=== PATIENT | female | born 1955 | race Caucasian/White ===

== ENCOUNTER 2024-06-08 11:00 | Outpatient (RCR) | payer MEDICARE, MEDICAID, SELFPAY ==
--- NOTE | 2024-06-21 23:43 | CTCFLWUP_ITS ---
Patient: KELLY CATALAN : 1955 Page 2 of 3 FOLLOW UP NOTE DATE OF SERVICE: 06/08/2024 NAME: KELLY CATALAN ACCOUNT: [id number] : 1955 AGE: 68 HISTORY OF PRESENT ILLNESS: Patient follows with oncology for leukocytosis history. Today patient is complaining of bilateral ne ck swelling. Patient says that her neck swelling has increased in size. She also noticed decrease i n her appetite and night sweats. She has lost some weight. OTHER MEDICAL HISTORY/CONDITIONS: ANXIETY HEARTBURN CHEST PAIN CHCKENPOX GALLSTONES HIGH BLOOD PRESSURE MEASLES MUMPS HX OF ULCERS GALLBLADDER 3 C SECTIONS CARDIAC SENT FAMILY HISTORY: Father:?LUNG Mother:?THYROID?UTRINE Sibling: UTRINE?? 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 aspirin - 81 mg 1 tab Daily 2. Calcium 500 + D - 500 mg(1,250mg) -400 unit 1 tab Daily 3. clopidogrel - 75 mg 1 tab Daily 4. hydrOXYzine HCl - 50 mg 1 tab Daily 5. Lasix - 40 mg 1 tab Daily 6. Lipitor - 20 mg 1 tab Daily 7. metoprolol succinate - 25 mg 1 tab Daily 8. [place] - 10-325 mg 1 tab As directed 9. omeprazole - 40 mg 1 Capsule As needed 10. potassium chloride - 10 mEq 1 tab Daily 11. Protonix - 40 mg 1 tab Daily 12. valsartan - 80 mg 1 tab Daily 13. Vitamin D2 - 1,250 mcg (50,000 unit) 1 Capsule Weekly 14. Xanax - 0.5 mg 1 tab Twice a Day Medications Last Reconciled by Gretel Zeng MA on 06/08/2024 ALLERGIES: codeine sulfate REVIEW OF SYSTEMS: A complete 14-point review of systems was performed and is negative except as noted in interval histo ry. PHYSICAL EXAMINATION: VITAL SIGNS: Temperature?98.2, B/P?136/84, Oxygen?Saturation?95% Weight?188?lbs PAIN: 0 - No pain ECOG Performance Status: 0 - Asymptomatic and fully active GENERAL APPEARANCE: Appears well, in no apparent distress, appropriately interactive. HEENT: Bilateral neck swellings noted. Patient Havel rubbery swellings and fullness of the supraclav icular area normocephalic, no temporal wasting, normal conjunctiva, no scleral icterus, normal hearin g, lips without lesions, neck normal range of motion. CARDIOVASCULAR: Not assessed. PULMONARY: Normal respiratory effort, no respiratory distress or use of accessory muscles, speaking i n full sentences, no tachypnea. EXTREMITIES: No pedal edema or cyanosis. SKIN: Normal skin appearance. NEUROLOGIC: Alert and oriented x4. PSHYCHIATRIC: Appropriate affect, mood normal, behavior normal, intact thought and speech. LABORATORY DATA: I have personally reviewed and interpreted each of the patient?s relevant lab tests, abnormal finding s are below: Date ASSESSMENT/PLAN: 1. Bilateral neck swelling likely from lymphadenopathy concerning for lymphoma Patient physical examination is concerning with bilateral lymphadenopathy I reviewed CT scan which was negative and did not involve the symptomatic area which was negative Will get PET CT scan to evaluate lymphadenopathy 2. Leukocytosis likely from smoking 3. Lung nodule -no pulmonary nodules noted 4. Thyroid megaly and thyroid nodules--refer to endocrinology and ordered TSH T4 TSH T4 refer to home aide CBC CMP PET CT scan RETURN TO CLINIC: 3 weeks BILLING AND COMPLIANCE: I reviewed external records from providers outside my specialty as summarized above. I spent a total of 50 minutes on this patient?s care on the day of their visit excluding time spent related to any bi lled procedures. This time includes time spent with the patient as well as time spent documenting in the medical record, reviewing patients records and tests, obtaining history, placing orders, communi cating with other healthcare professionals, counseling the patient, family or caregiver, and/or care coordination for the diagnoses above. Electronically Signed by: Brannon Sneed MD T: 11:40 PM CC: Ravindra?Dickson?Jose,? PCP: Brannon Sneed Referring: Brannon Sneed This document was completed utilizing speech recognition software. Grammatical errors, random word in sertions, pronoun errors, and incomplete sentences are an occasional consequence of this system due t o software limitations, ambient noise, and hardware issues. Any formal questions or concerns about th e content, text or information contained within the body of this dictation should be directly address ed to the provider for clarification.
== END 2024-06-23 23:59 | disposition home or self-care (01) ==
LOC: SCTC 11:00
PROVIDERS: PCP Nurse Practitioner Family; Referring Provider Internal Medicine Hematology & Oncology; Visit Provider Internal Medicine Hematology & Oncology
DX: R59.0 Localized enlarged lymph nodes (principal); E04.2 Nontoxic multinodular goiter; D72.829 Elevated white blood cell count, unspecified
CPT/HCPCS: 99212; G0463

== ENCOUNTER → 2024-07-09 | Outpatient (CLI) | payer MEDICARE, MEDICAID, SELFPAY ==
--- NOTE | 2024-07-09 08:07 | XR_ITS ---
EXAMINATION: PET/CT FUSION SKULL TO THIGH EXAM DATE AND TIME: July 09, 2024 0902 hours INDICATIONS: Diagnosis lymphoma, staging prior to treatment CTDI:vol (mGy) 8.51 DLP: (mGycm) 671 PROCEDURE: 15.48 mCi FDG was administered intravenously To allow for distribution and uptake of radiotracer, the patient was allowed to rest quietly in a shielded room. Imaging was performed on an integrated 16-slice PET/CT scanner, with scanning from the skull base to the mid thigh. Serum blood glucose at the time of the injection was measured 115 mg/dL. CT scanning was performed without oral or intravenous contrast material. FINDINGS: Head and Neck: There is no fuentes hypermetabolism in the neck. Enlarged left thyroid lobe The visualized portions of the brain are normal in appearance on CT. Chest: There is no fuentes hypermetabolism in the chest. There are no pulmonary nodules. Abdomen and Pelvis: Moderate hepatomegaly There is no fuentes hypermetabolism in retroperitoneal or pelvic chains. The spleen is normal in size and FDG avidity. Musculoskeletal: Marrow uptake is within normal range. IMPRESSION: No hypermetabolic lymphadenopathy
== END | disposition home or self-care (01) ==
PROVIDERS: PCP Nurse Practitioner Family; Referring Provider Internal Medicine Hematology & Oncology; Visit Provider Internal Medicine Hematology & Oncology
DX: D72.828 Other elevated white blood cell count (principal); C76.0 Malignant neoplasm of head, face and neck
CPT/HCPCS: 78815; A9552

== ENCOUNTER 2024-07-15 07:54 | Outpatient (RCR) | payer MEDICARE, MEDICAID, SELFPAY | END 2024-07-24 23:59 | disposition home or self-care (01) | LOC: SCTC 07:54 | PROVIDERS: PCP Nurse Practitioner Family; Referring Provider Nurse Practitioner Family; Visit Provider Nurse Practitioner Family | DX: R22.1 Localized swelling, mass and lump, neck (principal); D72.829 Elevated white blood cell count, unspecified; E04.1 Nontoxic single thyroid nodule | CPT/HCPCS: 99212; G0463 ==

== ENCOUNTER 2025-02-15 11:21 | Emergency (ER) | payer MEDICARE, MEDICAID, SELFPAY ==
--- NOTE | 2025-02-15 11:25 | EKG_ITS ---
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
[2025-02-15 11:40] VITALS: BP 150/93; PULSE 83; RESP 20; TEMP 36.9; O2SAT 95
[2025-02-15 11:41] VITALS: BMI 35.5
--- NOTE | 2025-02-15 11:43 | XR_ITS ---
Examination: PA chest single view TECHNIQUE: Upright PA chest single view Date and time: February 15, 2025, 1152 hours INDICATIONS: Chest pain and coughing beginning 2 days ago. FINDINGS: Normal heart size. Lungs are clear. Reverse right shoulder arthroplasty. IMPRESSION: No pneumonia or pulmonary edema.
--- NOTE | 2025-02-15 11:47 | PD.EDCHEST ---
ED Chest Pain RME/HPI General Chief Complaint: Chest Pain Stated Complaint: CHEST PAIN RADIATING DOWN L) ARM SINCE YESTERDAY Time Seen by Provider: 02/15/25 11:42 Source: patient Arrival date/time: 02/15/25 11:21 Mode of arrival: ambulatory Limitations: no limitations RME / HPI RME / HPI narrative: 69-year-old female with a history of hypertension, anxiety, and acid reflux. She has mid chest pain radiating to the left shoulder for 4 days. History of CAD and stenting. Has chronic back pain and anxiety. She denies any lower leg swelling or dyspnea. Has no fevers or chills. No abdominal pain, nausea, vomiting. No syncope. Related Data Home Medications ?Medication ?Instructions ?Recorded ?Confirmed alprazolam 0.5 mg tablet (Xanax) 0.5 mg PO QPM PRN Anxiety 10/23/18 11/07/22 Held on 11/07/22. Instructions: Resume on 11/08/22. may resume tomorrow hydrocodone 10 mg-acetaminophen 1 tab PO TID PRN Pain 10/23/18 11/07/22 325 mg tablet ([place]) atorvastatin 20 mg tablet 20 mg PO DAILY 07/02/22 10/02/22 ergocalciferol (vitamin D2) 1,250 1,250 mcg PO QWEEK 07/02/22 10/02/22 mcg (50,000 unit) capsule (Vitamin D2) furosemide 40 mg tablet 40 mg PO DAILY 07/02/22 11/07/22 hydroxyzine HCl 25 mg tablet 50 mg PO DAILY 07/02/22 11/07/22 potassium chloride 10 mEq 10 meq PO QDAY 07/02/22 11/07/22 tablet,extended release aspirin 81 mg tablet,delayed 81 mg PO QDAY 11/07/22 11/07/22 release aspirin 81 mg tablet,delayed mg 11/07/22 release calcium 500 mg (as 1 tab PO DAILY 11/07/22 11/07/22 carbonate)-vitamin D3 5 mcg (200 unit) tablet (Oyster Shell Calcium-Vitamin D3) pantoprazole 40 mg tablet,delayed 40 mg PO BID 11/07/22 11/07/22 release valsartan 80 mg tablet 80 mg PO QDAY 11/07/22 11/07/22 Previous Rx's ?Medication ?Instructions ?Recorded albuterol sulfate 90 mcg/actuation 1 puff inhalation Q6H PRN 06/13/23 aerosol inhaler (Ventolin HFA) shortness of breath or wheezing #6.7 grams Allergies Allergy/AdvReac Type Severity Reaction Status Date / Time codeine Allergy Severe Swelling Verified 02/15/25 11:24 of the Eye Review of Systems Review of Systems Systems Reviewed: All systems reviewed, normal except as documented ED Exam General Limitations: Present no limitations General appearance: Present alert and in no apparent distress Head Head exam: Present atraumatic Eye Eye exam: Present normal appearance, PERRL and EOMI ENT ENT exam: Present normal exam, normal oropharynx and mucous membranes moist Neck Neck exam: Present normal inspection, full ROM and trachea midline Chest Chest inspection: Present normal inspection and symmetric chest wall rise Respiratory Respiratory exam: Present normal lung sounds bilaterally Cardiovascular Cardiovascular exam: Present regular rate, normal rhythm and normal heart sounds Abdominal Exam Abdominal exam: Present soft and normal bowel sounds Extremities Exam Extremities exam: Present normal inspection and full ROM Back Exam Back exam: Present normal inspection and full ROM Neurological Exam Neurological exam: Present alert and oriented X3 Psychiatric Psychiatric exam: Present agitated and anxious Skin Skin exam: Present warm, dry, intact and normal color Course Quality Measures none Orders Category Date Time Status EKG (ED ONLY) *Do not use* NOW Care 02/15/25 11:25 Completed EKG (ED Only) Stat Exams 02/15/25 11:25 Draft XR chest 1V Stat Exams 02/15/25 11:43 Completed BNP [B-Type Natriuretic Peptide] Stat Lab 02/15/25 12:10 Completed CBC Stat Lab 02/15/25 12:10 Completed CMP [Comprehensive Metabolic Panel] Stat Lab 02/15/25 12:10 Completed Lipase Stat Lab 02/15/25 12:10 Completed Mag [Magnesium] Stat Lab 02/15/25 12:10 Completed Troponin I Stat Lab 02/15/25 12:10 Completed Aspirin Chew Med 02/15/25 11:44 Discontinued 162 mg PO X1 ONE HYDROcodone*/APAP 5/325 [[place] 5/325] Med 02/15/25 11:45 Discontinued 1 tab PO X1 ONE Ondansetron Odt [Zofran Odt] Med 02/15/25 11:45 Discontinued 4 mg PO X1 ONE Vital Signs Vital signs: Vital Signs Temperature 98.4 F 02/15/25 11:40 Pulse Rate 83 02/15/25 11:40 Respiratory Rate 20 02/15/25 11:40 Blood Pressure 150/93 H 02/15/25 11:40 Pulse Oximetry (%) 95 02/15/25 11:40 Oxygen Delivery Method Room Air 02/15/25 11:40 Chest Pain MDM Narrative MDM Narrative:: 69-year-old female with a history of hypertension, anxiety, and acid reflux. She has mid chest pain radiating to the left shoulder for 4 days. History of CAD and stenting. Has chronic back pain and anxiety. She denies any lower leg swelling or dyspnea. Has no fevers or chills. No abdominal pain, nausea, vomiting. No syncope. On exam, patient is nontoxic-appearing and in no visible signs distress. Vital signs are stable. Her workup included CBC, CMP, troponin, EKG, chest x-ray. Workup is essentially unremarkable. Patient does report symptomatic. While here in the ER. She states she feels like this is more acid reflux. We discussed dietary modification including no eating or drinking 2 to 3 hours prior to sleep. 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 Return precautions were discussed. She agrees return as needed for any worsening or emergent changes. Patient data External records reviewed:: None Clinical information provided by:: patient Social determinants that could affect healthcare access:: none Patient has the following chronic illnesses:: Hypertension, anxiety, acid reflux, CAD How is presenting disease/condition affected by chronic disease/condition?: exacerbated by Evaluation data The following diagnostics were reviewed and interpreted by me:: lab results (CBC, CMP, troponin, mag are essentially unremarkable for any acute process), radiology exam(s) (Clear expanded lungs without mass or infiltrate) and EKG tracing(s) (Normal sinus rhythm no ST changes or dynamic T waves.) Lab and/or radiology exams considered but not ordered:: n/a Interpretation Summary: n/a Medications / Prescriptions Medications or Prescriptions considered but not ordered:: n/a Medication administrations:: Medication Administration History Discontinued Medications Hydrocodone Bitart/Acetaminophen (Hydrocodone/Apap 5/325 Tablet) 1 tab PO X1 ONE Stop: 02/15/25 11:46 Last Admin: 02/15/25 12:16 Dose: 1 tab Documented By: TIMO Aspirin (Aspirin 81 Mg Chew) 162 mg PO X1 ONE Stop: 02/15/25 11:45 Last Admin: 02/15/25 12:15 Dose: 162 mg Documented By: TIMO Ondansetron HCl (Ondansetron Odt 4 Mg Tabrap) 4 mg PO X1 ONE; Protocol Stop: 02/15/25 11:46 Last Admin: 02/15/25 12:15 Dose: 4 mg Documented By: TIMO See above Consultations Consultation(s) initiated? (list below): No Diagnosis Chest Pain Differential Diagnosis: costochondritis, chest pain and biliary colic Most likely diagnosis given after review of the tests above:: non-cardiac chest pain Admission Indicated Admission indicated?: not indicated Admission Request Was there a request for admission?: No Disposition Plan Disposition Plan: Discharge Discharge Attestation Discharge Attestation: The patient and all family members were given an opportunity to ask questions and understood the discharge instructions. Discharge instructions specifically effects, indications for sooner follow up or return to the emergency department, and the expected course of current diagnosis. Patient condition: Stable Discharge Plan Plan Patient Disposition: HOME (Self Care) Patient condition on transfer: Stable Prescriptions/Referrals Prescriptions/Med Rec: No Action hydrocodone-acetaminophen [[place]] 10-325 mg Tablet 1 tab PO TID PRN (Reason: Pain) alprazolam [Xanax] 0.5 mg Tablet 0.5 mg PO QPM PRN (Reason: Anxiety) furosemide 40 mg tablet 40 mg PO DAILY Patient Comments: TAKE ONE TABLET BY MOUTH EVERY MORNING A DIURETIC atorvastatin 20 mg tablet 20 mg PO DAILY Patient Comments: TAKE ONE TABLET BY MOUTH AT BEDTIME potassium chloride 10 mEq tablet extended release 10 meq PO QDAY Patient Comments: TAKE ONE TABLET BY MOUTH EVERY DAY hydroxyzine HCl 25 mg tablet 50 mg PO DAILY Patient Comments: TAKE ONE TABLET BY MOUTH AT BEDTIME ergocalciferol (vitamin D2) [Vitamin D2] 1,250 mcg (50,000 unit) capsule 1,250 mcg PO QWEEK Patient Comments: TAKE ONE CAPSULE BY MOUTH EVERY WEEK VITAMIN valsartan 80 mg Tablet 80 mg PO QDAY aspirin 81 mg Tablet,Delayed Release (Dr/Ec) 81 mg PO QDAY aspirin 81 mg Tablet,Delayed Release (Dr/Ec) calcium carbonate-vitamin D3 [Oyster Shell Calcium-Vit D3] 500 mg-5 mcg (200 unit) Tablet 1 tab PO DAILY pantoprazole 40 mg tablet,delayed release (DR/EC) 40 mg PO BID albuterol sulfate [Ventolin HFA] 90 mcg/actuation HFA aerosol inhaler 1 puff inhalation Q6H PRN (Reason: shortness of breath or wheezing) Qty: 6.7 0RF Problem List Clinical Impression: Chest pain Patient/Caregiver Discharge Instructions Education Materials: ED Chest Pain, Noncardiac Additional Instructions: - Continue current therapies. - Follow-up with your primary doctor or financial systems administrator as soon as possible. - Please return to the emergency room anytime for any worsening or emergent changes. Print Language: Lao Stand Alone Forms: Priya Award Info., Patient Portal Info Letter
[2025-02-15] MEDS: ASPIRIN 81 MG CHEW 162 MG PO (12:15)
[2025-02-15] MEDS: ONDANSETRON ODT 4 MG TABRAP PO (12:15)
[2025-02-15] MEDS: HYDROcodone/APAP 5/325 TABLET 1 TAB PO (12:16)
[2025-02-15 12:20] LABS: Basophils # (Auto) 0.1 Thou/mm3 (0.0-0.2); Basophils % (Auto) 1 % (0-2.5); Eosinophils # (Auto) 0.1 Thou/mm3 (0.0-0.5); Eosinophils % (Auto) 1 % (0-10); Hematocrit 43.4 % (36.0-46.0); Hemoglobin 14.8 g/dL (12.0-16.0); Immature Granulocytes Auto 0.03 Thou/mm3 (0.00-0.00); Lymphocytes # (Auto) 2.7 Thou/mm3 (1.0-4.8); Lymphocytes % (Auto) 30 % (10-50); Mean Corpuscular HGB Conc 34.1 g/dl (31.0-37.0); Mean Corpuscular Hemoglobin 30.6 pg (25.0-35.0); Mean Corpuscular Volume 90 fL (80-100); Monocytes # (Auto) 0.7 Thou/mm3 (0.0-0.8); Monocytes % (Auto) 7 % (0-12); Neutrophils # (Auto) 5.5 Thou/mm3 (1.8-7.7); Neutrophils % (Auto) 61 % (37-80); Nucleated Red Blood Cell # 0.00 Thou/mm3 (0.00-0.00); Nucleated Red Blood Cell % 0 /100 WBC (0); Platelet Count 315 Thou/mm3 (140-440); RDW Standard Deviation 38.4 fL (36.4-46.3); Red Blood Count 4.84 Miln/mm3 (4.00-5.20); White Blood Count 9.0 Thou/mm3 (3.6-11.0)
[2025-02-15 12:42] LABS: B-Type Natriuretic Peptide < 20 pg/mL (0-100)
[2025-02-15 12:43] LABS: Alanine Aminotransferase 29 U/L (10-49); Albumin, Serum 4.5 gm/dL (3.4-4.8); Albumin/Globulin Ratio 1.8 (1.2-2.2); Alkaline Phosphatase 137 U/L (46-116); Anion Gap 10 (7-16); Aspartate Amino Transferase 26 U/L (0-34); BUN/Creatinine Ratio 10 Ratio (12-20); Bilirubin,Total 0.5 mg/dL (0.3-1.2); Blood Urea Nitrogen 9 mg/dL (9-23); Calcium 10.0 mg/dL (8.3-10.6); Calcium (Corrected) 10.0 mg/dL (8.5-10.1); Carbon Dioxide 26.4 mMol/L (20.0-31.0); Chloride 104 mMol/L (98-107); Creatinine (Component) 0.9 mg/dL (0.6-1.3); Estimated Creatinine Clearance 52.4 mL/min (>60); Globulin 2.5 gm/dL (2.3-3.5); Glucose 120 mg/dL (74-106); Lipase 24 U/L (12-53); Magnesium 1.9 mg/dL (1.6-2.6); Osmolality,Calculated 279 (275-295); Potassium 4.1 mMol/L (3.4-5.1); Sodium 140 mMol/L (136-145); Total Protein 7.0 gm/dL (5.7-8.2); Troponin I < 0.002 ng/mL (0.0-0.045); eGFR > 60 See Note
== END 2025-02-15 14:12 | disposition home or self-care (01) ==
LOC: SERX 14:35
PROVIDERS: Emergency Provider Physician Assistant Medical
DX: R07.9 Chest pain, unspecified (principal); I25.10 Atherosclerotic heart disease of native coronary artery without angina pectoris; F41.9 Anxiety disorder, unspecified; I10 Essential (primary) hypertension; K21.9 Gastro-esophageal reflux disease without esophagitis
CPT/HCPCS: 36415; 71045; 80053; 83690; 83735; 83880; 84484; 85025; 93005; 99283; Q0162; A9270

== ENCOUNTER 2025-03-08 13:21 | Outpatient (RCR) | payer MEDICARE, MEDICAID, SELFPAY ==
--- NOTE | 2025-03-08 14:10 | CTCFLWUP_ITS ---
Patient: KELLY CATALAN : 1955 Page 2 of 4 FOLLOW UP NOTE DATE OF SERVICE: 03/08/2025 NAME: KELLY CATALAN ACCOUNT: [id number] : 1955 AGE: 69 INTERVAL HISTORY: Patient follow up with oncology for leukocytosis history. PET/CT that was done due to neck swelling. PET/CT showed no fuentes hypermetabolism in the neck, enlarged left thyroid lobe, no fuentes hypermetabolism in the chest, no pulmonary nodules, 07/09/2024. Patient's labs from January 2025 showed no leukocytosis. Patient also referred to endocrinology No oncology: Hematology call diagnosis at this time advised to follow-up with the primary care. No further follow-up needed in oncology HISTORY OF PRESENT ILLNESS: PREVIOUS NOTE: Patient follows with oncology for leukocytosis history. Today patient is complaining of bilateral neck swelling. Patient says that her neck swelling has increased in size. She also noticed decrease in her appetite and night sweats. She has lost some weight. OTHER MEDICAL HISTORY/CONDITIONS: ANXIETY HEARTBURN CHEST PAIN CHCKENPOX GALLSTONES HIGH BLOOD PRESSURE MEASLES MUMPS HX OF ULCERS GALLBLADDER 3 C SECTIONS CARDIAC SENT FAMILY HISTORY: Father:?LUNG Mother:?THYROID?UTRINE Sibling: UTRINE?? 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 aspirin - 81 mg 1 tab Daily 2. Calcium 500 + D - 500 mg-10 mcg (400 unit) 1 tab Daily 3. hydrOXYzine HCl - 50 mg 1 tab Daily 4. metoprolol succinate - 25 mg 1 tab Daily 5. [place] - 10-325 mg 1 tab As directed 6. omeprazole - 40 mg 1 Capsule As needed 7. Protonix - 40 mg 1 tab Daily 8. valsartan - 80 mg 1 tab Daily 9. Vitamin D2 - 1,250 mcg (50,000 unit) 1 Capsule Weekly 10. Xanax - 0.5 mg 1 tab Twice a Day Medications Last Reconciled by Laina Moran MA on 03/08/2025 ALLERGIES: codeine sulfate REVIEW OF SYSTEMS: A complete 14-point review of systems was performed and is negative except as noted in interval history. PHYSICAL EXAMINATION: VITAL SIGNS: PAIN: 0 - No pain ECOG Performance Status: 0 - Asymptomatic and fully active GENERAL APPEARANCE: Appears well, in no apparent distress, appropriately interactive. HEENT: Neck swelling, no temporal wasting, normal conjunctiva, no scleral icterus, normal hearing, lips without lesions, neck normal range of motion. CARDIOVASCULAR: Not assessed. PULMONARY: Normal respiratory effort, no respiratory distress or use of accessory muscles, speaking in full sentences, no tachypnea. EXTREMITIES: No cyanosis. SKIN: Normal skin appearance. NEUROLOGIC: Alert and oriented x4. PSHYCHIATRIC: Appropriate affect, mood normal, behavior normal, intact thought and speech. LABORATORY DATA: I have personally reviewed and interpreted each of the patient?s relevant lab tests, abnormal findings are below: Date 02/15/25 ??WHITE?BLOOD?COUNT?(Thou/mm3) 9.0 ??RED?BLOOD?COUNT?(Miln/mm3) 4.84 ??HEMOGLOBIN?(gm/dl) 14.8 ??HEMATOCRIT?(%) 43.4 ??PLATELET?COUNT?(Thou/mm3) 315 ??NEUTROPHILS?%,?AUTO?(%) 61 ??LYMPH?%,?AUTO?(%) 30 ??NEUTROPHILS,?AUTO?(Thou/mm3) 5.5 ??GLUCOSE,RANDOM?(mg/dL) 120?H ??BLOOD?UREA?NITROGEN?(mg/dL) 9 ??CREATININE?(mg/dL) 0.90 ??SODIUM?(mmol/L) 140 ??POTASSIUM?(mmol/L) 4.1 ??CHLORIDE?(mmol/L) 104 ??CrCl?(CandG)?(ml/min) 71.02 ??AST/SGOT?(Unit/L) 26 ??ALT/SGPT?(Unit/L) 29 ??ALKALINE?PHOSPHATASE?(Unit/L) 137?H ??BILIRUBIN,?TOTAL?(mg/dL) 0.5 ??PROTEIN?TOTAL?(gm/dl) 7.0 ??ALBUMIN,?SERUM?(gm/dl) 4.5 ??GLOBULIN?(gm/dl) 2.5 ??ALBUMIN/GLOBULIN?RATIO 1.8 ??CALCIUM,?SERUM?(mg/dL) 10.0 ??CALCIUM?SERUM?(CORRECTED)?(mg/dL) 10.0 ??MAGNESIUM?(mg/dL) 1.9 ASSESSMENT/PLAN: 1. Bilateral neck swelling 2. CT of chest scan was negative and did not involve the symptomatic area which was negative, 04/28/2024 3. PET/CT scan showed no fuentes hypermetabolism in the neck, enlarged left thyroid lobe, no fuentes hypermetabolism in the chest, no pulmonary nodules, 07/09/2024. 4. Leukocytosis likely from smoking -resolved quit smoking 5. Lung nodule -no pulmonary nodules noted in CT of chest done 04/28/2024. Patient has quit smoking but still need monitoring advised to follow-up with the primary care 6. Thyroid megaly and thyroid nodules--referreal to endocrinology previously done, has appt. 01/2025 and previously ordered TSH T4 have not been completed, no recent labs. If TSH is increased will consider possibly starting patient on levothyroxine at next appointment. Patient advised to follow-up with the primary care No active hematological or oncology call diagnosis As needed follow-up CBC CMP TSH T4 ORDERS: Order # Description [id number] RETURN TO CLINIC: I reviewed the diagnosis, prognosis, and recommended treatment/procedure options with the patient (and/or their legal client account representative), including the potential benefits, risks, side effects and alternative therapies. We also discussed the option of no treatment and the possibility of clinical trial participation, if applicable. All questions were addressed, and they demonstrated understanding. They provided informed consent to proceed with the proposed plan of care. BILLING AND COMPLIANCE: I reviewed external records from providers outside my specialty as summarized above. I spent a total of 50 minutes on this patient?s care on the day of their visit excluding time spent related to any billed procedures. This time includes time spent with the patient as well as time spent documenting in the medical record, reviewing patients records and tests, obtaining history, placing orders, communicating with other healthcare professionals, counseling the patient, family or caregiver, and/or care coordination for the diagnoses above. Electronically Signed by: Brannon Sneed MD T: 2:08 PM CC: Ravindra?Dickson?Jose,? PCP: Jacob Amaral Referring: Jacob Amaral This document was completed utilizing speech recognition software. Grammatical errors, random word insertions, pronoun errors, and incomplete sentences are an occasional consequence of this system due to software limitations, ambient noise, and hardware issues. Any formal questions or concerns about the content, text or information contained within the body of this dictation should be directly addressed to the provider for clarification.
== END 2025-03-23 23:59 | disposition home or self-care (01) ==
LOC: SCTC 13:21
PROVIDERS: PCP Student in an Organized Health Care Education/Training Program; Referring Provider Nurse Practitioner Family; Visit Provider Internal Medicine Hematology & Oncology
DX: R22.1 Localized swelling, mass and lump, neck (principal); D72.829 Elevated white blood cell count, unspecified; Z87.891 Personal history of nicotine dependence; E04.1 Nontoxic single thyroid nodule
CPT/HCPCS: 99212; G0463